=== PATIENT | male | born 1960 | race Caucasian/White ===

== ENCOUNTER 2020-12-16 15:07 | Emergency (ER) | payer BC, SELFPAY ==
[2020-12-16 15:20] VITALS: BP 138/95; PULSE 66; RESP 16; TEMP 36.6; O2SAT 97
--- NOTE | 2020-12-16 15:22 | ED.SKABFB ---
HPI - Skin/Abscess/Foreign Bdy General Chief complaint: Skin/Abscess/Foreign Body Stated complaint: splinter in lt hand Source: patient Mode of arrival: ambulatory Limitations: no limitations History of Present Illness HPI narrative: Patient is a 60-year-old male who presents with a foreign body to left thenar palm. Patient reports splinter while moving plywood. He denies other injuries. Bleeding controlled. Patient is unsure when last tetanus. Patient denies significant medical history. MD complaint: other (Foreign body) Related Data Home Medications Medication Instructions Recorded Confirmed lisinopril-hydrochlorothiazide 1 tablet PO DAILY 12/16/20 12/16/20 Allergies Allergy/AdvReac Type Severity Reaction Status Date / Time Penicillins Allergy Unknown Unknown Verified 12/16/20 15:43 gluten AdvReac Intermediate ABD Verified 12/16/20 15:43 PAIN/CRAMPING Review of Systems Review of Systems: CONSTITUTIONAL: Denies fever, chills, or sweats. EYES: Denies visual changes, redness, or discharge. ENT: Denies rhinorrhea, congestion, sore throat, or otalgia. CARDIOVASCULAR: Denies chest pain, palpitations, or edema. RESPIRATORY: Denies cough or dyspnea. GASTROINTESTINAL: Denies abdominal pain, nausea, vomiting, or diarrhea. GENITOURINARY: Denies dysuria or hematuria. SKIN: Foreign body left hand MUSCULOSKELETAL: Denies back pain, joint pain, or myalgia. NEUROLOGIC: Denies headache, numbness, dizziness, or weakness. PSYCHIATRIC: Denies anxiety or depression. COUNT INCLUDES THE [facility] Past Medical History Medical History Appendicitis Asthma Gluten intolerance Melanoma Surgical History Surgical History Hx of appendectomy Family History Family History (Updated 12/16/20 @ 15:27 by AMOR Ling) Other Cancer Social History Social History (Updated 12/16/20 @ 15:28 by AMOR Ling) Smoking status: Current some day smoker Tobacco type: cigars Alcohol intake: current Alcohol use details: Occasional Substance use: never Living arrangements: with family Occupation/Education: occupation Comments At the time of signature, I have reviewed and agree with nursing past medical, surgical, social, and family history unless otherwise noted. Please see nursing chart for further information. There is no relevant family history pertinent to the presenting complaint. Exam Narrative: GENERAL: Well-appearing, well-nourished, and in no acute distress. HEAD: Normocephalic, atraumatic. EYES: EOMI. No redness or drainage. Conjunctiva are normal. ENT: Mucous membranes pink and moist. CHEST: No respiratory distress. HEART: Regular rate and rhythm. EXTREMITIES: Normal range of motion. SKIN: Palpable foreign body to left thenar palm. Small puncture wound noted, bleeding controlled. NEURO: No focal deficits. Alert and oriented x3. Gait steady. PSYCH: Normal affect. No signs of depression or anxiety. Course Vital Signs Vital signs: Vital Signs Temperature 36.6 C 12/16/20 15:20 Pulse Rate 66 12/16/20 15:20 Respiratory Rate 16 12/16/20 15:20 Blood Pressure 138/95 H 12/16/20 15:20 Pulse Oximetry 97 12/16/20 15:20 Temperature 36.6 C 12/16/20 15:20 Pulse Rate 66 12/16/20 15:20 Respiratory Rate 16 12/16/20 15:20 Blood Pressure 138/95 H 12/16/20 15:20 Pulse Oximetry 97 12/16/20 15:20 Procedures Other Procedure Procedure 1: Other Procedure: Patient injected with 2 mils of 1% lidocaine into left thenar palm. Foreign body palpated prior to injection. #11 blade used for small incision and approximate 2 cm piece of wood removed from thenar palm. Patient tolerated procedure well. One 5-0 Ethilon suture placed. Dressing applied, wound care instructions discussed with patient and . MDM - Skin/Abscess/Foreign Bdy MDM Narrative Medical decision
[2020-12-16] MEDS: TETANUS,DIPHTHERIA,AC PERTUSSIS ADULT (0.5 ML) BOOSTRIX IM (15:35)
--- NOTE | 2020-12-16 20:26 | PC.NURSE ---
1535-[id number] dap lot # [id number], Exp 11/29/21
== END 2020-12-16 15:57 | disposition home or self-care (01) ==
PROVIDERS: Emergency Provider Nurse Practitioner; PCP Internal Medicine
DX: S61.442A Puncture wound with foreign body of left hand, initial encounter (principal); W45.8XXA Other foreign body or object entering through skin, initial encounter; Z23 Encounter for immunization; J45.909 Unspecified asthma, uncomplicated; E74.39 Other disorders of intestinal carbohydrate absorption; Z85.820 Personal history of malignant melanoma of skin; F17.290 Nicotine dependence, other tobacco product, uncomplicated
CPT/HCPCS: 10120; 90471; 90715; 99213; G0463

== ENCOUNTER 2023-01-14 01:41 | Day surgery (SDC) | payer BC, SELFPAY ==
[2023-01-01 09:09] VITALS: BMI 28.8
--- NOTE | 2023-01-12 09:28 | SUR.PREOP ---
Patient called regarding upcoming procedure. Reviewed preop instructions, appointment times, and procedure prep.
--- NOTE | 2023-01-13 16:52 | PM.HPGS ---
History of Present Illness History of Present Illness Consent: Risks, benefits, and alternatives have been discussed and questions answered. Patient agrees to proceed with procedure. Chief complaint: Unspecified abdominal pain Narrative: Simon Boyle is a 62 year old male his last colonoscopy was 10 years ago. He recently has been having right lower quadrant abdominal pain suspicious for possible inflammatory bowel disease. CT scan was done but we do not have those results. he states that the CT scan showed a kidney stone in the right kidney. Also which showed diverticulosis. This pain he has been dealing with for many years. It was present for several days and then go away. It does not seem to be a pattern except occasionally it may be worse after meal. Review of Systems Review of Systems: All systems reviewed & are unremarkable except as noted in HPI and below PMFSH Past Medical History Medical History Appendicitis Asthma Gluten intolerance Melanoma Surgical History Surgical History Hx of appendectomy Family History Family History Other Cancer Social History Social History Smoking status: Never smoker Tobacco type: cigars Alcohol intake: current Drinks per week: 3 Alcohol use details: Occasional Substance use: never Substance use type: does not use Living arrangements: other Additional living arrangements comments: with sp Occupation/Education: occupation Meds Home Medications and Allergies Home Medications Medication Instructions Recorded Confirmed Type lisinopril 10 0.5 tablet PO DAILY 12/16/20 01/14/23 History mg-hydrochlorothiazide 12.5 mg tablet tamsulosin 0.4 mg capsule 0.4 mg PO DAILY 01/01/23 01/14/23 History Allergies Allergy/AdvReac Type Severity Reaction Status Date / Time Penicillins Allergy Unknown Unknown Verified 01/14/23 10:28 gluten AdvReac Intermediate ABD Verified 01/14/23 10:28 PAIN/CRAMPING Exam Const: General: alert Orientation/consciousness: patient oriented x3 Resp: Auscultation: clear to auscultation bilaterally Cardio: Rhythm: regular rhythm GI: GI Palp: Yes Soft to palpation and No Tenderness to palpation present (GI) Neuro: General: patient oriented x3 Assessment and Plan Assessment and plan (1) Abnormal CT scan, gastrointestinal tract: Code(s): R93.3 - Abnormal findings on diagnostic imaging of other parts of digestive tract Status: Acute Assessment and Plan: Colonoscopy with possible biopsy or polypectomy or cautery or injection of substances.
[2023-01-14 10:29] VITALS: BP 138/86; PULSE 57; RESP 20; TEMP 36.4; O2SAT 99; BMI 28.7
[2023-01-14] MEDS: LACTATED RINGERS 1,000 ML 150 ML IV CONT (10:33)
--- NOTE | 2023-01-14 11:03 | WPDANESEPPF ---
Anes - Initial Pre Proc Eval Procedure: Operation Date: 01/14/23 11:30 Proposed Procedures p Colonoscopy - Simon Wilburn MD Date/Time: 01/14/23 11:03 Surgeon: Simon Wilburn MD Pre Op Diagnosis: Unspecified abdominal pain Patient Data Age: 62 Gender: M Height: 1.75 m Weight: 88.2 kg Last Vital Signs Temp 97.6 F 01/14/23 10:29 Pulse 57 L 01/14/23 10:29 Resp 20 01/14/23 10:29 BP 138/86 01/14/23 10:29 Pulse Ox 99 01/14/23 10:29 O2 Del Method Room Air 01/14/23 10:29 Allergies Allergy/AdvReac Type Severity Reaction Status Date / Time Penicillins Allergy Unknown Unknown Verified 01/14/23 10:28 gluten AdvReac Intermediate ABD Verified 01/14/23 10:28 PAIN/CRAMPING Home Medications Medication Instructions Recorded Confirmed Type lisinopril 10 0.5 tablet PO DAILY 12/16/20 01/14/23 History mg-hydrochlorothiazide 12.5 mg tablet tamsulosin 0.4 mg capsule 0.4 mg PO DAILY 01/01/23 01/14/23 History Patient hx anesthesia problems: none Family hx anesthesia problems: none Results Review: All pre-operative results and documents have been reviewed as part of the pre-operative evaluation. [facility] Past Medical History Medical History Appendicitis Asthma Gluten intolerance Melanoma Surgical History Surgical History Hx of appendectomy Family History Family History Other Cancer Social History Social History Smoking status: Never smoker Tobacco type: cigars Alcohol intake: current Drinks per week: 3 Alcohol use details: Occasional Substance use: never Substance use type: does not use Living arrangements: other Additional living arrangements comments: with sp Occupation/Education: occupation Anes - Eval Final PreProcedure Day of Procedure 01/14/23 11:03 Patient weight: normal Heart: regular rate and rhythm Lungs: clear to auscultation Airway: Mallampati scale class II Neurological: alert and oriented Last oral intake: >/= 8 hours ASA classification: II Emergent: no Anesthetic plan: proceed Anesthesia type and monitoring: general GIVS and standard monitoring Results Review: All pre-operative results and documents have been reviewed as part of the pre-operative evaluation. Informed Consent: The patient's anesthetic plan and its attendant risks and benefits were discussed with the patient/family/POA. Questions were solicited and answers provided to the satisfaction of the patient/family/POA.
[2023-01-14 11:37] VITALS: BP 102/60; PULSE 55; RESP 20; O2SAT 100
[2023-01-14 11:47] VITALS: BP 124/92; PULSE 56; RESP 26; O2SAT 100
[2023-01-14 11:57] VITALS: BP 129/93; PULSE 50; RESP 15; O2SAT 100
== END 2023-01-14 12:03 | disposition home or self-care (01) ==
PROVIDERS: PCP Internal Medicine; Visit Provider Internal Medicine Gastroenterology
PROC: 0DJD8ZZ Inspection of Lower Intestinal Tract, Via Natural or Artificial Opening Endoscopic (ICD-10-PCS; CPT 45378; principal; 2023-01-14 11:30)
DX: K57.30 Diverticulosis of large intestine without perforation or abscess without bleeding (principal)
CPT/HCPCS: 45378; J2704; J7120

== ENCOUNTER 2023-02-24 08:37 | Outpatient (CLI) | payer BC, SELFPAY ==
--- NOTE | ~2023-02-24 | XR_ITS ---
XR abdomen/kub 1V 02/24/2023 08:58 INDICATION: Right ureteral stone TECHNIQUE: KUB COMPARISON: None FINDINGS: Bowel gas pattern is normal. There is no evidence of free air, mass, organomegaly, ascites or obstruction. No abnormal calculi are seen. The bones appear intact. Calcifications in the pelvi s are believed to be phleboliths. IMPRESSION: 1: No acute abdominal abnormality identified. Reviewed, dictated and finalized at location L. FIXER
== END 2023-02-24 08:38 | disposition home or self-care (01) ==
PROVIDERS: PCP Internal Medicine; Visit Provider Physician Assistant
DX: N20.1 Calculus of ureter (principal)
CPT/HCPCS: 74018

== ENCOUNTER 2023-05-25 01:04 | Observation (INO) | payer BC, SELFPAY ==
[2023-05-25] VITALS (17 sets, daily range): BP systolic 106–160; BP diastolic 66–104; PULSE 60–121; RESP 14–24; TEMP 36.4–36.9; O2SAT 95–98; BMI 29.0
--- NOTE | 2023-05-25 | ECHO_ITS ---
Patient Info Name: Simon Boyle Age: 62 years : 1960 Gender: Male Ht: 69 in Wt: 196 lbs BSA: 2.10 m2 HR: 81 bpm BP: 106 / 76 mmHg Heart Rhythm: Sinus Rhythm Technical Quality: Good Exam Date: 05/25/2023 10:44 AM Exam Location: Echo Lab Patient Status: Outpatient Admit Date: 05/25/2023 Staff Ordering Physician: Marilee Roque MD Vest Front Presser: Nicole Fernández RDCS Attending Provider: Marilee Roque MD Referring Physician: Mya BRAND; Exam Type: CA echo doppler color flow Study Info Indications - afib Complete two-dimensional, color flow and Doppler transthoracic echocardiogram is performed. Summary 1. Complete two-dimensional, color flow and Doppler transthoracic echocardiogram is performed. 2. Left ventricular chamber dimension is normal. 3. Left ventricular systolic function is normal, estimated at 65-70%. 4. There is mildly increased left ventricular wall thickness. 5. The left ventricular diastolic function is normal. 6. Left atrial chamber dimension is mildly enlarged. 7. There is mild mitral valve regurgitation. 8. There is mild tricuspid valve regurgitation. Left Ventricle Left ventricular chamber dimension is normal. Left ventricular systolic function is normal, estimated at 65-70%. There is mildly increased left ventricular wall thickness. The left ventricular diastolic function is normal. Right Ventricle Right ventricular chamber dimension is normal. Right ventricular systolic function is normal. Left Atria Left atrial chamber dimension is mildly enlarged. Right Atria Right atrial chamber dimension is normal. Atrial Septum Intact interatrial septum visualized by color flow imaging. Aortic Valve The aortic valve is trileaflet. There is mild aortic valve sclerosis. There is no aortic valve stenosis. There is trace aortic valve regurgitation. Pulmonic Valve The pulmonic valve is normal. There is no pulmonic valve stenosis. There is trace pulmonic regurgitation. Mitral Valve The mitral valve has normal leaflets. There is no mitral valve stenosis. There is mild mitral valve regurgitation. Tricuspid Valve The tricuspid valve leaflets are normal. There is no significant tricuspid valve stenosis. There is mild tricuspid valve regurgitation. No pulmonary hypertension, estimated pulmonary arterial systolic pressure is 25 mmHg. Pericardium/Pleural The pericardium appears normal. There is trivial pericardial effusion. Inferior Vena Cava Normal inferior vena cava with >50% collapse upon inspiration consistent with normal right atrial pressure, 10 mmHg. Aorta The aortic root size at the sinus of Valsalva is normal. Left Ventricular Outflow Tract Name Value Normal LVOT 2D LVOT Diameter 2.0 cm LVOT Doppler LVOT Peak Gradient 5 mmHg LVOT Mean Gradient 2 mmHg LVOT VTI 22 cm LVOT VTI/AV VTI Ratio 0.7 LVOT Stroke Volume 67 ml LVOT CO 3.8 l/min LVOT CI 1.8 l/min/m2 Pulmonic Valve
--- NOTE | ~2023-05-25 | XR_ITS ---
EXAMINATION: XR chest 2V DATE: 05/25/2023 01:38 INDICATION: Chest pain. TECHNIQUE: Frontal and lateral views of the chest were obtained. COMPARISON: None. FINDINGS: A calcified right lung nodule and calcified right hilar lymph nodes are consistent with old granulomatous disease. No pleural effusion or pneumothorax. The heart size is normal. IMPRESSION: 1. No acute cardiopulmonary disease. Reviewed, dictated and finalized at location E.
--- NOTE | 2023-05-25 01:05 | ECG_ITS ---
Measurements Intervals [place] Rate: 118 P: UT: 0 QRS: -9 QRSD: 97 T: 40 QT: 313 QTc: 439 Interpretive Statements ATRIAL FIBRILLATION WITH RAPID VENTRICULAR RESPONSE LEFT VENTRICULAR HYPERTROPHY WITH ST-T CHANGE BASELINE WANDER- I, III ABNORMAL ECG NO PREVIOUS ECG AVAILABLE FOR COMPARISON Electronically Signed On 05-25-2023 6:31:12 CDT by Alexandr Silva D.O.
[2023-05-25 01:23] LABS: Basophils Absolute Auto 0.1 K/mm3 (0.0-0.1); Basophils Percent Auto 0.6 % (0.2-1.2); Eosinophils Absolute Auto 0.1 K/mm3 (0-0.3); Eosinophils Percent Auto 1.2 % (0-4.4); Hematocrit 49.3 % (42.0-52.0); Immature Granulocyte Absolute 0.05 K/mm3 (0.00-0.031); Immature Granulocyte Percent A 0.5 % (0-0.5); Lymphocytes Percent Auto 26.3 % (18.3-44.2); Mean Corpuscular HGB Conc 34.5 g/dl (32-36); Mean Corpuscular Hemoglobin 31.8 pg (26-34); Mean Corpuscular Volume 92.1 fl (80-100); Mean Platelet Volume 9.9 fl (7.4-10.4); Monocytes Absolute Auto 0.6 K/mm3 (0.1-0.6); Monocytes Percent Auto 5.9 % (2.6-8.5); Neutrophils Percent Auto 65.5 % (45.5-73.1); Platelet Count Result 254 k/mm3 (150-375); Red Blood Count 5.35 M/mm3 (4.6-6.20); Red Cell Distribution Width 13.2 % (11.5-14.5); White Blood Count 10.6 K/mm3 (4.5-10.0)
[2023-05-25 01:40] LABS: Alanine Aminotransferase 72 U/L (6-50); Albumin Level 4.7 g/dL (3.5-5.1); Alkaline Phosphatase 73 U/L (38-126); Anion Gap 8 mmol/L (8-16); Aspartate Amino Transferase 57 U/L (17-59); Bilirubin,Total 1.6 mg/dL (0.2-1.3); Blood Urea Nitrogen 21 mg/dL (9-20); Carbon Dioxide 25 mmol/L (22-30); Chloride 104 mmol/L (98-107); Estimated CRCL calculation 82 ml/min; Estimated Glomerular Filt Rate > 60; Glucose 139 mg/dL (65-110); Lipase 44 U/L (23-300); Potassium 3.7 mmol/L (3.4-5.0); Sodium 137 mmol/L (137-145)
[2023-05-25 01:47] LABS: Prothrombin Time 13.6 Seconds (11.1-14.7)
[2023-05-25 01:52] LABS: Troponin I < 0.012 ng/mL (0.000-0.034)
[2023-05-25] MEDS: SODIUM CHLORIDE 0.9% IV 1,000 ML 150 ML IV CONT (01:52)
--- NOTE | 2023-05-25 02:18 | ED.CHESTPAIN ---
HPI - Chest Pain General Chief Complaint: Chest Pain Stated Complaint: elevated heart rate Time Seen by Provider: 05/25/23 01:14 History of Present Illness HPI narrative: Patient is a 62-year-old male who presents to the emergency department this morning complaining of mild chest pressure and palpitations. Patient states that around 8:00 p.m. he noticed that his heart rate on his apple watch was elevated. Patient says heart rate was reading in the 130s which is very unusual for him. Patient states that his resting heart rate is usually in the 50s. He denies any history of atrial fibrillation or any cardiac arrhythmias and denies any history of coronary artery disease. Patient's only medical history is hypertension which he takes lisinopril for. Patient admits that he has been struggling with a sinus infection recently but denies any fevers or chills at home. He denies any sharp stabbing chest pain, nausea, vomiting, abdominal pain. There are no other modifying, alleviating, or precipitating factors at this time. Related Data Home Medications Medication Instructions Recorded Confirmed lisinopril 10 1 tablet PO DAILY 12/16/20 05/25/23 mg-hydrochlorothiazide 12.5 mg tablet tamsulosin 0.4 mg capsule 0.4 mg PO DAILY 01/01/23 01/14/23 Allergies Allergy/AdvReac Type Severity Reaction Status Date / Time Penicillins Allergy Unknown Unknown Verified 05/25/23 01:12 gluten AdvReac Intermediate ABD Verified 05/25/23 01:12 PAIN/CRAMPING Review of Systems Review of Systems: All systems are reviewed and are negative unless stated otherwise in the HPI. [facility] Past Medical History Medical History Appendicitis Asthma Gluten intolerance Melanoma Surgical History Surgical History Hx of appendectomy Family History Family History Other Cancer Social History Social History Smoking status: Never smoker Tobacco type: cigars Alcohol intake: current Drinks per week: 3 Alcohol use details: Occasional Substance use: never Substance use type: does not use Living arrangements: other Additional living arrangements comments: with sp Occupation/Education: occupation Exam Narrative: General: Alert, awake, afebrile, in no acute distress. HEENT: PERRL, no rhinorrhea, no post nasal drip, oropharynx clear. Neck: Trachea midline, no JVD, no lymphadenopathy. Cardiovascular: Tachycardic with an irregular rhythm, no murmurs, rubs or gallops, no peripheral edema. Respiratory: Clear to auscultation bilaterally, no tachypnea, no wheezing, no rhonchi, no rubs, no respiratory distress. Abdomen: Soft, nontender, nondistended, no rebound, no guarding, no peritoneal signs. Musculoskeletal: No joint swelling or deformity, normal muscle tone. Skin: No rashes or petechia, no signs of infection. Psychiatric: Alert and oriented, normal behavior and judgment for situation. Neurological: Alert and oriented to person, place, and time. Follows all commands. No focal deficits, speech is clear and fluent. Course Vital Signs Vital signs: Vital Signs Temperature 97.6 F 05/25/23 01:06 Pulse Rate 121 H 05/25/23 01:06 Respiratory Rate 24 H 05/25/23 01:06 Blood Pressure 160/104 H 05/25/23 01:06 Pulse Oximetry 98 05/25/23 01:06 Oxygen Delivery Room Air 05/25/23 01:06 Temperature 97.6 F 05/25/23 01:06 Pulse Rate 72 05/25/23 03:08 Respiratory Rate 15 05/25/23 03:08 Blood Pressure 106/76 05/25/23 03:08 Pulse Oximetry 97 05/25/23 03:08 Oxygen Delivery Room Air 05/25/23 01:06 MDM - Chest Pain MDM Narrative Medical decision making narrative: The patient was evaluated by myself in the emergency department. History is obtained from patient who is an independen
[2023-05-25] MEDS: dilTIAZem HCl INJ 25 MG/5 ML VIAL 10 MG IV PUSH (02:44)
[2023-05-25] MEDS: dilTIAZem 100 MG/100 ML 100 MG/100 ML BAG IV CONT (02:48)
--- NOTE | 2023-05-25 04:49 | ECG_ITS ---
Measurements Intervals [place] Rate: 71 P: MS: 0 QRS: -5 QRSD: 96 T: -12 QT: 381 QTc: 416 Interpretive Statements ATRIAL FIBRILLATION VOLTAGE CRITERIA FOR LVH BORDERLINE T WAVE ABNORMALITY- INFERIOR LEADS ABNORMAL ECG COMPARED TO ECG 05/25/2023 01:12:39 HEART RATE HAS DECREASED Electronically Signed On 05-25-2023 9:30:20 CDT by Alexandr Silva D.O.
--- NOTE | 2023-05-25 05:04 | PM.IMHP ---
H&P: HPI History of Present Illness Date/Time: 05/25/23 05:04 Chief Complaint: Palpitations Narrative: This is a 62-year-old male past medical history significant for hypertension, benign prostatic hyperplasia, asthma, gluten intolerance. Patient presents to the emergency room after episode of palpitations and tachycardia according to apple device and blood pressure machine picked up a rate in mid to in 130s to 150s. Patient has been his usual state of health up until this point had some retrosternal pressure, some lightheadedness, no nausea, no vomiting, no syncope or near syncope, no cough no sputum production no fevers no rigors no chills, no leg swelling no PND no orthopnea. In emergency room patient was found to have atrial fibrillation with rapid ventricular response placed on diltiazem drip. Review of Systems Review of Systems: Palpitations, heart rated between 130s to 150s according to blood pressure machine and apple devise watch PMFSH Past Medical History Medical History (Updated 05/25/23 @ 05:05 by Marilee Roque MD) Appendicitis Asthma Gluten intolerance Melanoma Surgical History Surgical History Hx of appendectomy Family History Family History (Updated 05/25/23 @ 04:33 by Tangela Aguilar RN) Father Cancer Grandparent Cerebrovascular accident Hypertension Asthma Emphysema lung Mother Hypertension Social History Social History Smoking status: Light tobacco smoker Tobacco type: cigars Second hand tobacco smoke exposure: Yes Alcohol intake: current Drinks per week: 7 Alcohol use details: Occasional Substance use: never Substance use type: does not use Do You Feel Safe in your Home?: Yes Lack of Transportation: No Lack of Food: Never True Current Housing: I Have Housing Concerned About Future Housing: No Difficulty Paying Gas/Electric Bills: No Difficulty Paying for Meds: No Currently Unemployed: No Education: Bachelor's Degree Difficulty w/ Childcare or Family Care: No Living arrangements: other Additional living arrangements comments: with sp Occupation/Education: occupation Spiritual care concerns: No Meds Home Medications and Allergies Home Medications Medication Instructions Recorded Confirmed Type lisinopril 10 0.5 tablet PO DAILY 10/17/21 03/25/24 History mg-hydrochlorothiazide 12.5 mg tablet tamsulosin 0.4 mg capsule 0.4 mg PO HS 01/01/23 05/25/23 History Allergies Allergy/AdvReac Type Severity Reaction Status Date / Time Penicillins Allergy Unknown Unknown Verified 05/25/23 01:12 gluten AdvReac Intermediate ABD Verified 05/25/23 01:12 PAIN/CRAMPING Vital Signs Vital Signs - 24 hr 05/25/23 01:06 05/25/23 02:48 05/25/23 03:08 Temperature 97.6 F Pulse Rate 121 H 98 72 Respiratory Rate 24 H 15 Blood Pressure 160/104 H 140/104 H 106/76 Pulse Oximetry 98 97 Oxygen Delivery Room Air Exam Narrative: Patient is laying in a stretcher Const: General: comfortable, no acute distress, well developed, alert, awake and average body habitus Nutritional Appearance: average body habitus Orientation/consciousness: patient oriented x3 HENMT: Head: normal to inspection, normocephalic and atraumatic Ears: hearing grossly normal bilaterally Face/Nose/Sinus: normal facial exam Face and sinus: normal facial exam Eyes: General: appearance normal, both eyes and all related structures Pupils: Equal, round and reactive pupils present EOM: EOMs intact bilaterally Neck: Neck: full ROM, no lymphadenopathy and no JVD Thyroid: thyroid normal Lymphatic: no lymphadenopathy noted Resp: Effort & Inspection: normal respiratory effort and able to speak in complete sentences Auscultation: clear to auscultation bilaterally Cardio: Jugular venous distension: no JVD Rate: tachycardic Rhyt
--- NOTE | 2023-05-25 05:12 | ADMGEN ---
This patient, Simon Boyle, was admitted to IMU Room 214-60 [id number]. Patient/family oriented to hospital policies and general routines including ID bracelet, bed and alarms, visiting hours, pain management, procedures, bathroom and other care routines, personal items, smoking policy, room service/diet, and visiting hours. Information on how to activate the Rapid Response Team has been discussed. Patient/Family are encouraged to report perceived risks to care and to ask questions if they do not understand what they are told or what they should do.
[2023-05-25 05:30] LABS: Troponin I < 0.012 ng/mL (0.000-0.034)
--- NOTE | 2023-05-25 06:09 | ADMGEN ---
This patient, Simon Boyle, was admitted to IMU Room 214-01 on 05/25/23 at 0420. Patient/family oriented to hospital policies and general routines including ID bracelet, bed and alarms, visiting hours, pain management, procedures, bathroom and other care routines, personal items, smoking policy, room service/diet, and visiting hours. Information on how to activate the Rapid Response Team has been discussed. Patient/Family are encouraged to report perceived risks to care and to ask questions if they do not understand what they are told or what they should do.
[2023-05-25 07:30] LABS: Troponin I < 0.012 ng/mL (0.000-0.034)
[2023-05-25] MEDS: lisinopriL 5 MG TABLET PO (09:01)
[2023-05-25] MEDS: hydroCHLOROthiazide 6.25 MG TABLET PO (09:02)
--- NOTE | 2023-05-25 10:21 | PM.CNCAR ---
Assessment and Plan Assessment and plan (1) Atrial fibrillation with RVR: Code(s): I48.91 - Unspecified atrial fibrillation Status: Acute Assessment and Plan: New onset atrial fibrillation. His potassium is low normal but no obvious electrolyte abnormality. He is doing some sinus infection but is not using Sudafed or similar compounds. He does drink caffeine in excess and will drink up to 8 cups daily. He does have 1 drink of bourbon daily but does not typically drink to excess. I discussed extensively atrial fibrillation atrial fibrillation management. His chads Vasc score is 1. He has converted back to sinus rhythm already on diltiazem. 2D echocardiogram with Dopplers ordered and will be reviewed. Outpatient stress test to be performed because of the chest pressure as well as the atrial fibrillation. Discussed anti-platelet versus anticoagulant therapy given his score of 1. Will utilize aspirin 325 mg daily. Will add low-dose Toprol XL 12.5 mg p.o. daily. Will discontinue the hydrochlorothiazide portion of his lisinopril hydrochlorothiazide given electrolyte disturbance. Continue lisinopril. Okay for discharge later today. His potassium is low normal will give him 40 mEq of p.o. potassium chloride. (2) Hypertension: Code(s): I10 - Essential (primary) hypertension Status: Acute Assessment and Plan: Generally at goal at home (3) Chest pressure: Code(s): R07.89 - Other chest pain Status: Acute Assessment and Plan: Very atypical and unlikely cardiac in etiology but stress test to be performed as an outpatient History of Present Illness History of Present Illness Consult date/time: 05/25/23 10:21 Requesting physician: Marilee Roque MD Consult reason: atrial fibrillation Reason For Visit: A FIB RVR Narrative: Reason for consultation: Atrial fibrillation Date of service 05/25/2023 Requesting provider: Dr. Roque History: Patient is a 62-year-old male who hypertension. He has no known cardiac history. He came to hospital because of palpitations. He states that he was at his daughter's house yesterday in doing quite a bit of physical activity and work but this is not unusual for him. He went home and ate dinner and shortly thereafter at around 8:00 p.m. started to feel abnormal. Was a little bit dizzy and nauseated and felt palpitations. His Apple watch showed that his heart rate was elevated and was as high as in the 140s. Due to ongoing symptoms and tachycardia, he came to hospital for further workup and evaluation. He was found to be in atrial fibrillation with rapid ventricular response. He was started on diltiazem. He has since converted back to sinus rhythm. He currently feels fine and denies any chest pain, shortness breath, syncope, presyncope, paroxysmal nocturnal dyspnea, orthopnea, edema. He does have occasional chest pressure at night. He states that it feels if there is a 10 lb weight on his chest. It only occurs at night will last for few minutes until he goes to sleep. It has been present for the past couple months. It occurs a couple times weekly. It does not radiate nor is associated with other symptoms. Review of Systems Review of Systems: All systems reviewed & are unremarkable except as noted in HPI and below Constitutional: Constitutional: Denies body ache(s) Eyes: Eyes: Denies blurry vision ENT: Reports Normal hearing present Cardiovascular: Cardiovascular: Reports chest pain and Reports palpitations Respiratory: Respiratory: Denies hemoptysis Gastrointestinal: Gastrointestinal: Denies melena Genitourinary: Genitourinary: Denies hematuria Musculoskeletal: Musculoskeletal: Denies back pain Integumentary/Breasts: Skin/Breast: Denies erythema Neurologic: Denies Abnormal speech present Psychiatric: Psychiatric: Denies anxiety Endocrine: Endocrine: Denies excessive sweating Hematologic/Lymphatic: Hematologic/Lym
[2023-05-25] MEDS: POTASSIUM CHLORIDE 20 MEQ ER TABLET 40 MEQ PO (10:49)
[2023-05-25] MEDS: METOPROLOL SUCCINATE EXT REL 12.5 MG TABCR PO (10:49)
--- NOTE | 2023-05-25 11:19 | PM.DS ---
DS: Admitting Diagnosis Discharge Date 05/25/2023 Admitting Diagnosis new onset atrial fibrillation weakness DS: Discharge Diagnosis Discharge Diagnosis (1) Atrial fibrillation with RVR: Code(s): I48.91 - Unspecified atrial fibrillation Status: Acute Assessment and Plan: -new onset atrial fibrillation -cardiology consulted appreciate recommendation and plan -Echocardiogram pending -Continue daily weights -Continue telemetry monitoring Per Cardiology will add low-dose Toprol XL 12.5 mg p.o. daily -DC hydrochlorothiazide, continue lisinopril -give K+ chloride 40 mEq p.o. once per Cardiology -Cardiology okay for discharge today (2) Hypertension: Code(s): I10 - Essential (primary) hypertension Status: Acute (3) Asthma: Code(s): J45.909 - Unspecified asthma, uncomplicated Status: Chronic Assessment and Plan: -not in exacerbation, not requiring oxygen denies any SOB DS: Summary Hospital Course Reason for hospitalization: palpitations ongoing for 2 days Hospital Course: ?62-year-old male PMHx: significant for hypertension, benign prostatic hyperplasia, asthma, gluten intolerance.? Patient Presented to the emergency room after episode of palpitations and tachycardia, patient endorses receiving notification from his Stio device that he was experiencing elevated heart rates in the mid 130s to 150s. ? Patient has been his usual state of health up until this point had some retrosternal pressure, some? lightheadedness, no nausea, no vomiting, no syncope or near syncope, no cough no sputum production no fevers no rigors no chills, no leg swelling no PND no orthopnea.? In emergency room patient was found to have atrial fibrillation with rapid ventricular response placed on diltiazem drip. Status at Discharge Functional status at discharge: independent ambulation Overall status at discharge: patient is progressing back to baseline Time Spent with Patient Time attestation: Total time spent providing and/or coordinating discharge services: Time spent: Less than 30 minutes Exam Narrative: General: A well-developed, nontoxic-appearing gentlemen, sitting up in bed. HEENT: PERRL, EOMI. Oral mucosa moist. Neck: Supple. No midline cervical tenderness. Respiratory: Respirations are non- labored and lungs are clear to auscultation bilaterally. Cardiovascular: Regular rate and rhythm with S1-S2. Gastrointestinal: Abdomen is soft, non-tender, and non-distended with positive bowel sounds. Skin: Warm and dry. No rash or lesions on limited exam. Extremities: No cyanosis, clubbing, or edema. Radial and pedal pulses intact. Neurological: Alert and oriented. Cranial nerves 2-12 are grossly intact. No gross focal deficits to casual conversation. Psychiatric: Pleasant and cooperative with normal mood and affect. Judgment and insight intact. DS: Data Data Completed and Pending Labs on day of discharge: Labs from last 24 hours 05/25/23 05/25/23 05/25/23 07:00 04:36 01:11 WBC 10.6 H RBC 5.35 Hgb 17.0 Hct 49.3 MCV 92.1 MCH 31.8 MCHC 34.5 RDW 13.2 Plt Count 254 MPV 9.9 Immature Gran % (Auto) 0.5 Neut % (Auto) 65.5 Lymph % (Auto) 26.3 [place] % (Auto) 5.9 Eos % (Auto) 1.2 Baso % (Auto) 0.6 Lymph # (Auto) 2.80 [place] # (Auto) 0.6 Eos # (Auto) 0.1 Baso # (Auto) 0.1 Abs Immat Gran (auto) 0.05 H Absolute Neuts (auto) 7.0 H Absolute Nucleated RBC 0.000 Nucleated RBC % 0.0 PT 13.6 INR 1.0 APTT 31.0 Sodium 137 Potassium 3.7 Chloride 104 Carbon Dioxide 25 Anion Gap 8 BUN 21 H Creatinine 0.80 Estim Creat Clear Calc 82 Estimated GFR > 60 Glucose 139 H Calcium 10.0 Magnesium 2.0 Total Bilirubin 1.6 H AST 57 ALT 72 H Alkaline Phosphatase 73 Troponin I < 0.012 < 0.012 < 0.012 Total Protein 7.0 Albumin 4.7 Lipase 44 TSH (Reflex)
== END 2023-05-25 16:55 | disposition home or self-care (01) ==
LOC: ANHED 03:24 → ANHIMU 05:15
PROVIDERS: Admitting Provider Internal Medicine; Emergency Provider Emergency Medicine; PCP Internal Medicine; Visit Provider Internal Medicine
DX: I48.91 Unspecified atrial fibrillation (principal); R07.89 Other chest pain; I08.1 Rheumatic disorders of both mitral and tricuspid valves; N40.0 Benign prostatic hyperplasia without lower urinary tract symptoms; J45.909 Unspecified asthma, uncomplicated; Z72.0 Tobacco use
CPT/HCPCS: 36415; 71046; 80053; 83690; 83735; 84443; 84484; 85025; 85610; 85730; 93005; 93306; 96361; 96365; 96366; 99285; A9270; G0378; J7030